=== PATIENT | male | born 1955 | race Caucasian/White ===

== ENCOUNTER 2017-04-12 07:55 | Emergency (ER) | payer BC ==
--- NOTE | 2017-04-12 08:27 | ERPHSYRPT ---
- History of Present Illness Time Seen by Provider: 04/12/17 08:20 Source: patient Exam Limitations: no limitations Patient Subjective Stated Complaint: pt here for a nose bleed this morning, bleeding from right nostril Triage Nursing Assessment: pt alert, resp easy, skin w/d/p. small amt of bleeding for right nostril Physician History: 56 y/o male comes to the ER after developing bleeding from the right nostril this morning. Pt states that he has had a similar episode last year that required ENT evaluation. Pt is not on any blood thinners and has no other bleeding issues. Pt states that he put his head forward and applied pressure for 10 mins. Pt is bleeding slightly from the right nostril. Pt arrives with a BP of 186/110 and a HR of 116 but has no chest pain, shortness of breath, palpitations, dizziness or headache. Pt states that he has been anxious in the past with similar results after having a nose bleed. Timing/Duration: abrupt onset Severity: mild ENT Location: nose Prearrival Treatment: squeezing nostrils Modifying Factors: Improves With: nothing Associated Symptoms: nasal congestion/drainage, epistaxis Allergies/Adverse Reactions: No Known Drug Allergies Allergy (Unverified 04/12/17 08:13) Home Medications: Losartan Potassium [Cozaar] 25 mg DAILY 04/12/17 [History] Metoprolol Tartrate 50 mg [Lopressor 50 MG] 50 mg DAILY 04/12/17 [History] Hx Influenza Vaccination/Date Given: No Hx Pneumococcal Vaccination/Date Given: No Immunizations Up to Date: Yes - Review of Systems Constitutional: No Fever, No Chills Eyes: No Symptoms Ears, Nose, & Throat: Epistaxis Respiratory: No Cough, No Dyspnea Cardiac: No Chest Pain, No Edema, No Syncope Abdominal/Gastrointestinal: No Abdominal Pain, No Nausea, No Vomiting, No Diarrhea Genitourinary Symptoms: No Dysuria Musculoskeletal: No Back Pain, No Neck Pain Skin: No Rash Neurological: No Dizziness, No Focal Weakness, No Sensory Changes Psychological: No Symptoms Endocrine: No Symptoms All Other Systems: Reviewed and Negative - Past Medical History Pertinent Past Medical History: Yes Cardiac History: High Cholesterol, Hypertension Psycho-Social History: Anxiety Male Reproductive Disorders: Prostate Cancer Other Medical History: fast heart rate - Past Surgical History Past Surgical History: Yes Gastrointestinal: Hernia Repair - Social History Smoking Status: Never smoker Exposure to second hand smoke: No Drug Use: none Patient Lives Alone: No - Nursing Vital Signs Nursing Vital Signs: Initial Vital Signs Temperature 97.0 F 04/12/17 08:07 Pulse Rate 121 H 04/12/17 08:07 Respiratory Rate 18 04/12/17 08:07 Blood Pressure 183/110 04/12/17 08:07 O2 Sat by Pulse Oximetry 96 04/12/17 08:07 Pain Scale Pain Intensity 0 - Physical Exam General Appearance: no apparent distress, alert Eye Exam: bilateral eye: PERRL, EOMI Nasal Exam: dried blood Throat Exam: pharynx normal, moist mucus membranes, No tonsillar exudate Neck Exam: normal inspection, non-tender, supple Cardiovascular/Respiratory Exam: normal breath sounds, regular rate/rhythm, tachycardia Abdominal Exam: non-tender, soft Neurologic Exam: alert, oriented x 3, sensation nml, No motor deficits Skin Exam: normal color, warm, dry SpO2: 96 Oxygen Delivery: Room Air - Course Nursing assessment & vital signs reviewed: Yes Ordered Tests: Active Orders 24 hr Category Date Time Status Apply Nose Clip STAT Care 04/12/17 08:25 Active Epistaxis Set Up STAT Care 04/12/17 08:25 Active CBC W DIFF Stat Lab 04/12/17 08:45 Completed PROTIME WITH INR Stat Lab 04/12/17 08:45 Completed PTT Stat Lab 04/12/17 08:45 Completed Medication Summary Discontinued Medications Generic Name Dose Route Start Last Admin Trade Name Freq PRN Reason Stop Dose Admin Lorazepam 1 mg 04/12/17 08:36 Ativan 1 Mg PO 04/12/17 08:37 STAT ONE Silver Nitrate Confirm 04/12/17 09:42 Arzol Silver Nitrate Applicator Administered 04/12/17 09:43 Dose 1 pkt TP .STK-MED ONE Lab/Rad Data: Laboratory Result Diagrams 04/12/17 08:45 Laboratory Results 04/12/17 04/12/17 Range/Units 08:45 08:45 WBC 8.9 (4.0-10.5) K/mm3 RBC 5.33 (4.1-5.6) M/mm3 Hgb 16.0 (12.5-18.0) gm/dl Hct 48.6 (42-50) % MCV 91.2 (78-100) fl MCH 30.0 (26-32) pg MCHC 32.9 (32-36) g/dl RDW 14.1 H (11.5-14.0) % Plt Count 220 (150-450) K/mm3 MPV 8.9 (6-9.5) fl Gran % 65.8 (36.0-66.0) % Lymphocytes % 22.0 L (24.0-44.0) % Monocytes % 11.2 (0.0-12.0) % Eosinophils % 0.8 (0.00-5.0) % Basophils % 0.2 (0.0-0.4) % Basophils # 0.02 (0-0.4) INR 1.02 (0.8-3.0) APTT 30.0 (24.1-36.1) SECONDS - Progress Progress: improved Progress Note: 04/12/17 09:58 Pressure was applied for 40 mins with no relief. I was able to cauterize the area with silver nitrate. The CBC and coags are within normal limits. The patient will be d/c home. - Departure Time of Disposition: 09:59 Departure Disposition: Home Clinical Impression: Epistaxis Condition: Stable Critical Care Time: No Referrals: DOCTOR,NO FAMILY [Primary Care Provider] - Instructions: Nosebleeds (DC) Additional Instructions: Return to the ER if you should continue to have nose bleeding.
[2017-04-12] MEDS ORDERED: Ativan 1 MG PO ONE (08:36)
[2017-04-12 08:46] VITALS: BP 167/105
[2017-04-12 09:10] LABS: BASOPHIL % 0.2 % (0.0-0.4); Basophil (Absolute #) 0.02 (0-0.4); Eosinophil % 0.8 % (0.00-5.0); Eosinophil (Absolute #) 0.07 (0-0.5); Granulocyte Absolute (ANC) 5.82 (1.4-6.9); Granulocytes % 65.8 % (36.0-66.0); Hematocrit 48.6 % (42-50); Lymphocyte (Absolute #) 1.95 (1.0-4.6); Mean Cell Volume 91.2 fl (78-100); Mean Corpuscular Hgb Concent. 32.9 g/dl (32-36); Mean Platelet Volume 8.9 fl (6-9.5); Monocyte (Absolute #) 0.99 (0.0-1.3); Monocytes % 11.2 % (0.0-12.0); Platelet Count 220 K/mm3 (150-450); Red Blood Count 5.33 M/mm3 (4.1-5.6); Red Cell Distribution Width 14.1 % (11.5-14.0); White Blood Count 8.9 K/mm3 (4.0-10.5)
[2017-04-12 09:16] LABS: INR 1.02 (0.8-3.0)
[2017-04-12 09:36] VITALS: PULSE 100
[2017-04-12] MEDS ORDERED: ARZOL Silver Nitrate Applicator TP ONE ×3 (09:42→10:12)
[2017-04-12 09:59] VITALS: O2SAT 96
== END 2017-04-12 10:17 | disposition home or self-care (01) ==
LOC: ED 07:55 → EDBD 07:55 → ED 10:17
DX: R04.0 Epistaxis (principal)
CPT/HCPCS: 36415; 85025; 85610; 85730; 99283; A9270-GY